=== PATIENT | female | born 1940 | race Caucasian/White ===

== ENCOUNTER 2021-02-25 13:10 | Inpatient (IN) ==
[2021-02-25] MEDS ORDERED: *HR* Dextrose 50 % in Water (Syg) 50 ML SYRINGE IVP PRN (15:55)
[2021-02-25] MEDS ORDERED: Dextrose Gel 15 GM/37.5 ML TUBE PO PRN ×2 (15:55)
[2021-02-25] MEDS ORDERED: D5% in Water 1,000 ML IVC PRN (15:55)
[2021-02-25] MEDS ORDERED: (Diclofenac Sodium [Voltaren] 100 GM Gel..Gram.) TP PRN (16:03)
[2021-02-25] MEDS: Insulin LISPRO 300 UNITS/3 ML VIAL SUBQ SCH ×2 (16:59→21:54)
[2021-02-25] MEDS: *HR* HYDROcodone/Acet 10/325 mg TABLET PO PRN (17:20)
[2021-02-25] MEDS: Metoprolol 100 MG TABLET PO SCH (21:53)
[2021-02-25] MEDS: Insulin DETEMIR 100 UNIT/ML X5UNITS SUBQ SCH (21:53)
[2021-02-25] MEDS: Gabapentin 300 MG CAPSULE PO SCH (21:53)
[2021-02-25] MEDS: Nystatin POWDER 30 GM BOTTLE TP SCH (21:54)
[2021-02-26] MEDS: *HR* HYDROcodone/Acet 10/325 mg TABLET PO PRN ×4 (01:03→22:39)
[2021-02-26 08:34] LABS: Basophils # 0.1 K/mcL (0.0-0.2); Basophils % 0.9 %; Eosinophils # 0.4 K/mcL (0.0-0.6); Eosinophils % 3.5 %; Hematocrit 48.1 % (35.3-44.9); Immature Granulocytes % 1.2 % (0-4); Lymphocytes # 1.5 K/mcL (0.6-4.6); Lymphocytes % 14.4 %; Mean Corpuscular HGB Conc 33.3 g/dL (31.6-35.5); Mean Corpuscular Hemoglobin 32.6 pg (28.0-33.3); Mean Platelet Volume 10.3 fL (9.4-12.4); Monocytes % 9.9 %; Neutrophils # 7.3 K/mcL (1.6-8.9); Platelet Count 187 K/mcL (140-400); Red Blood Count 4.91 M/mcL (3.82-4.97); Red Cell Distribution Width 14.7 % (11.5-14.5); Segmented Neutrophils % 70.1 %; White Blood Count 10.4 K/mcL (4.3-11.1)
[2021-02-26] MEDS: Insulin LISPRO 300 UNITS/3 ML VIAL SUBQ SCH ×4 (08:54→21:29)
[2021-02-26] MEDS: Gabapentin 300 MG CAPSULE PO SCH ×3 (08:57→21:28)
[2021-02-26] MEDS: calcitrioL 0.25 MCG CAPSULE PO SCH (08:57)
[2021-02-26] MEDS: Cholecalciferol (D-3) 1,000 UNIT (25MCG) TABLET PO SCH (08:57)
[2021-02-26] MEDS: Aspirin 81 MG TAB.CHEW PO SCH (08:57)
[2021-02-26] MEDS: Metoprolol 100 MG TABLET PO SCH ×2 (08:57→21:28)
[2021-02-26] MEDS: Isosorbide MONOnitrate (24 HR) 60 MG TAB.ER.24H PO SCH (08:57)
[2021-02-26] MEDS: Furosemide 20 MG TABLET PO SCH (08:58)
[2021-02-26] MEDS: Nystatin POWDER 30 GM BOTTLE TP SCH ×3 (08:58→21:50)
[2021-02-26] MEDS: polyethylene glycoL 3350 17 GM POWD.PACK PO SCH (08:59)
[2021-02-26] MEDS ORDERED: Nitroglycerin 0.1 MG PATCH.TD24 TD SCH (09:00)
[2021-02-26 09:11] LABS: Calcium 9.8 mg/dL (8.6-10.3); Potassium 4.1 mEq/L (3.5-5.1)
[2021-02-26] MEDS: Insulin DETEMIR 100 UNIT/ML X5UNITS SUBQ SCH (09:17)
[2021-02-26] MEDS: (Empagliflozin [Jardiance] 25 MG Tablet) PO SCH (11:09)
[2021-02-26] MEDS: NALOXEGOL OXALATE 25 MG PO SCH (11:09)
[2021-02-26] MEDS ORDERED: Ipratropium/Albuterol Neb 3 ML IH PRN (13:19)
[2021-02-26] MEDS ORDERED: Insulin DETEMIR 100 UNIT/ML X5UNITS SUBQ SCH (21:00)
[2021-02-27] MEDS: *HR* HYDROcodone/Acet 10/325 mg TABLET PO PRN (05:07)
[2021-02-27] MEDS: *HR* LORazepam 1 MG TABLET PO PRN (05:07)
[2021-02-27] MEDS: *HR* Enoxaparin 40 MG/0.4 ML SYRINGE SQ SCH (07:03)
[2021-02-27] MEDS: Isosorbide MONOnitrate (24 HR) 60 MG TAB.ER.24H PO SCH (10:01)
[2021-02-27] MEDS: Furosemide 20 MG TABLET PO SCH (10:01)
[2021-02-27] MEDS: Cholecalciferol (D-3) 1,000 UNIT (25MCG) TABLET PO SCH (10:01)
[2021-02-27] MEDS: Aspirin 81 MG TAB.CHEW PO SCH (10:01)
[2021-02-27] MEDS: polyethylene glycoL 3350 17 GM POWD.PACK PO SCH (10:01)
[2021-02-27] MEDS: Metoprolol 100 MG TABLET PO SCH ×2 (10:01→20:55)
[2021-02-27] MEDS: calcitrioL 0.25 MCG CAPSULE PO SCH (10:01)
[2021-02-27] MEDS: Gabapentin 300 MG CAPSULE PO SCH ×3 (10:01→20:56)
[2021-02-27] MEDS: Insulin DETEMIR 100 UNIT/ML X5UNITS SUBQ SCH ×2 (10:01→21:07)
[2021-02-27] MEDS: Insulin LISPRO 300 UNITS/3 ML VIAL SUBQ SCH ×7 (10:03→21:08)
[2021-02-27] MEDS: Nystatin POWDER 30 GM BOTTLE TP SCH ×3 (10:04→21:16)
[2021-02-27] MEDS: (Empagliflozin [Jardiance] 25 MG Tablet) PO SCH (10:05)
[2021-02-27] MEDS: NALOXEGOL OXALATE 25 MG PO SCH (10:05)
[2021-02-28] MEDS: *HR* HYDROcodone/Acet 10/325 mg TABLET PO PRN ×3 (00:07→18:35)
[2021-02-28] MEDS: *HR* Enoxaparin 40 MG/0.4 ML SYRINGE SQ SCH (05:18)
[2021-02-28] MEDS: Furosemide 20 MG TABLET PO SCH (08:33)
[2021-02-28] MEDS: calcitrioL 0.25 MCG CAPSULE PO SCH (08:33)
[2021-02-28] MEDS: Isosorbide MONOnitrate (24 HR) 60 MG TAB.ER.24H PO SCH (08:33)
[2021-02-28] MEDS: Cholecalciferol (D-3) 1,000 UNIT (25MCG) TABLET PO SCH (08:33)
[2021-02-28] MEDS: Gabapentin 300 MG CAPSULE PO SCH ×3 (08:33→20:24)
[2021-02-28] MEDS: Metoprolol 100 MG TABLET PO SCH ×2 (08:33→20:24)
[2021-02-28] MEDS: polyethylene glycoL 3350 17 GM POWD.PACK PO SCH (08:33)
[2021-02-28] MEDS: Aspirin 81 MG TAB.CHEW PO SCH (08:33)
[2021-02-28] MEDS: Insulin LISPRO 300 UNITS/3 ML VIAL SUBQ SCH ×8 (08:34→20:32)
[2021-02-28] MEDS: Insulin DETEMIR 100 UNIT/ML X5UNITS SUBQ SCH ×2 (08:34→20:32)
[2021-02-28] MEDS: NALOXEGOL OXALATE 25 MG PO SCH (08:35)
[2021-02-28] MEDS: (Empagliflozin [Jardiance] 25 MG Tablet) PO SCH (08:35)
[2021-02-28] MEDS: Nystatin POWDER 30 GM BOTTLE TP SCH ×3 (08:44→20:33)
[2021-03-01] MEDS: *HR* LORazepam 1 MG TABLET PO PRN ×2 (00:32→07:56)
[2021-03-01] MEDS: *HR* HYDROcodone/Acet 10/325 mg TABLET PO PRN ×3 (00:32→16:05)
[2021-03-01] MEDS: *HR* Enoxaparin 40 MG/0.4 ML SYRINGE SQ SCH (06:25)
[2021-03-01] MEDS: Insulin LISPRO 300 UNITS/3 ML VIAL SUBQ SCH ×7 (07:53→20:28)
[2021-03-01] MEDS: Metoprolol 100 MG TABLET PO SCH ×2 (07:56→20:27)
[2021-03-01] MEDS: calcitrioL 0.25 MCG CAPSULE PO SCH (07:56)
[2021-03-01] MEDS: Aspirin 81 MG TAB.CHEW PO SCH (07:56)
[2021-03-01] MEDS: polyethylene glycoL 3350 17 GM POWD.PACK PO SCH (07:56)
[2021-03-01] MEDS: Isosorbide MONOnitrate (24 HR) 60 MG TAB.ER.24H PO SCH (07:56)
[2021-03-01] MEDS: Gabapentin 300 MG CAPSULE PO SCH ×3 (07:56→20:27)
[2021-03-01] MEDS: Furosemide 20 MG TABLET PO SCH (07:56)
[2021-03-01] MEDS: Cholecalciferol (D-3) 1,000 UNIT (25MCG) TABLET PO SCH (07:56)
[2021-03-01] MEDS: (Empagliflozin [Jardiance] 25 MG Tablet) PO SCH (07:57)
[2021-03-01] MEDS: NALOXEGOL OXALATE 25 MG PO SCH (07:57)
[2021-03-01] MEDS: Nystatin POWDER 30 GM BOTTLE TP SCH ×3 (07:57→20:34)
[2021-03-01] MEDS: Insulin DETEMIR 100 UNIT/ML X5UNITS SUBQ SCH ×2 (08:51→20:28)
[2021-03-01 09:07] LABS: Basophils # 0.1 K/mcL (0.0-0.2); Basophils % 0.7 %; Eosinophils # 0.2 K/mcL (0.0-0.6); Eosinophils % 2.5 %; Hematocrit 50.8 % (35.3-44.9); Immature Granulocytes % 1.1 % (0-4); Lymphocytes # 1.4 K/mcL (0.6-4.6); Lymphocytes % 14.8 %; Mean Corpuscular HGB Conc 33.5 g/dL (31.6-35.5); Mean Corpuscular Hemoglobin 33.2 pg (28.0-33.3); Mean Corpuscular Volume 99.2 fL (83.0-100.0); Mean Platelet Volume 10.5 fL (9.4-12.4); Monocytes # 0.7 K/mcL (0.0-1.3); Monocytes % 7.6 %; Neutrophils # 6.9 K/mcL (1.6-8.9); Platelet Count 155 K/mcL (140-400); Red Blood Count 5.12 M/mcL (3.82-4.97); Red Cell Distribution Width 14.7 % (11.5-14.5); Segmented Neutrophils % 73.3 %; White Blood Count 9.5 K/mcL (4.3-11.1)
[2021-03-01 09:22] LABS: Calcium 9.8 mg/dL (8.6-10.3); Potassium 4.2 mEq/L (3.5-5.1)
[2021-03-02] MEDS: *HR* Enoxaparin 40 MG/0.4 ML SYRINGE SQ SCH (05:52)
[2021-03-02] MEDS: polyethylene glycoL 3350 17 GM POWD.PACK PO SCH (09:19)
[2021-03-02] MEDS: Metoprolol 100 MG TABLET PO SCH ×2 (09:20→20:35)
[2021-03-02] MEDS: Gabapentin 300 MG CAPSULE PO SCH ×3 (09:20→20:35)
[2021-03-02] MEDS: Isosorbide MONOnitrate (24 HR) 60 MG TAB.ER.24H PO SCH (09:20)
[2021-03-02] MEDS: Cholecalciferol (D-3) 1,000 UNIT (25MCG) TABLET PO SCH (09:20)
[2021-03-02] MEDS: Aspirin 81 MG TAB.CHEW PO SCH (09:20)
[2021-03-02] MEDS: calcitrioL 0.25 MCG CAPSULE PO SCH (09:20)
[2021-03-02] MEDS: *HR* HYDROcodone/Acet 10/325 mg TABLET PO PRN ×2 (09:20→16:03)
[2021-03-02] MEDS: Furosemide 20 MG TABLET PO SCH (09:20)
[2021-03-02] MEDS: Insulin DETEMIR 100 UNIT/ML X5UNITS SUBQ SCH ×2 (09:23→20:36)
[2021-03-02] MEDS: Insulin LISPRO 300 UNITS/3 ML VIAL SUBQ SCH ×7 (09:24→20:36)
[2021-03-02] MEDS: Nystatin POWDER 30 GM BOTTLE TP SCH (09:29)
[2021-03-02] MEDS: (Empagliflozin [Jardiance] 25 MG Tablet) PO SCH (09:29)
[2021-03-02] MEDS: NALOXEGOL OXALATE 25 MG PO SCH (09:30)
[2021-03-02] MEDS: *HR* LORazepam 1 MG TABLET PO PRN (20:35)
[2021-03-03] MEDS: *HR* OxyCODONE/APAP 5/325 TABLET PO PRN ×3 (00:25→18:57)
[2021-03-03] MEDS: Nystatin POWDER 30 GM BOTTLE TP SCH ×5 (00:26→20:27)
[2021-03-03] MEDS: *HR* Enoxaparin 40 MG/0.4 ML SYRINGE SQ SCH (05:28)
[2021-03-03] MEDS: Gabapentin 300 MG CAPSULE PO SCH ×3 (08:28→20:26)
[2021-03-03] MEDS: Aspirin 81 MG TAB.CHEW PO SCH (08:28)
[2021-03-03] MEDS: calcitrioL 0.25 MCG CAPSULE PO SCH (08:29)
[2021-03-03] MEDS: Furosemide 20 MG TABLET PO SCH (08:29)
[2021-03-03] MEDS: Cholecalciferol (D-3) 1,000 UNIT (25MCG) TABLET PO SCH (08:29)
[2021-03-03] MEDS: Isosorbide MONOnitrate (24 HR) 60 MG TAB.ER.24H PO SCH (08:29)
[2021-03-03] MEDS: Metoprolol 100 MG TABLET PO SCH ×2 (08:29→20:26)
[2021-03-03] MEDS: polyethylene glycoL 3350 17 GM POWD.PACK PO SCH (08:29)
[2021-03-03] MEDS: (Empagliflozin [Jardiance] 25 MG Tablet) PO SCH (08:32)
[2021-03-03] MEDS: Insulin LISPRO 300 UNITS/3 ML VIAL SUBQ SCH ×7 (08:35→20:27)
[2021-03-03] MEDS: Insulin DETEMIR 100 UNIT/ML X5UNITS SUBQ SCH ×2 (08:38→20:27)
[2021-03-03] MEDS: NALOXEGOL OXALATE 25 MG PO SCH (08:42)
[2021-03-04] MEDS: *HR* OxyCODONE/APAP 5/325 TABLET PO PRN ×4 (02:32→21:34)
[2021-03-04] MEDS: *HR* Enoxaparin 40 MG/0.4 ML SYRINGE SQ SCH (05:45)
[2021-03-04] MEDS: Isosorbide MONOnitrate (24 HR) 60 MG TAB.ER.24H PO SCH (08:52)
[2021-03-04] MEDS: Gabapentin 300 MG CAPSULE PO SCH ×3 (08:52→21:11)
[2021-03-04] MEDS: calcitrioL 0.25 MCG CAPSULE PO SCH (08:52)
[2021-03-04] MEDS: Furosemide 20 MG TABLET PO SCH (08:52)
[2021-03-04] MEDS: Cholecalciferol (D-3) 1,000 UNIT (25MCG) TABLET PO SCH (08:52)
[2021-03-04] MEDS: Aspirin 81 MG TAB.CHEW PO SCH (08:52)
[2021-03-04] MEDS: polyethylene glycoL 3350 17 GM POWD.PACK PO SCH (08:53)
[2021-03-04] MEDS: Nystatin POWDER 30 GM BOTTLE TP SCH ×3 (08:53→21:35)
[2021-03-04] MEDS: Metoprolol 100 MG TABLET PO SCH ×2 (08:53→21:11)
[2021-03-04] MEDS: NALOXEGOL OXALATE 25 MG PO SCH (08:53)
[2021-03-04] MEDS: (Empagliflozin [Jardiance] 25 MG Tablet) PO SCH (08:53)
[2021-03-04] MEDS: Insulin LISPRO 300 UNITS/3 ML VIAL SUBQ SCH ×7 (08:54→21:07)
[2021-03-04] MEDS: Insulin DETEMIR 100 UNIT/ML X5UNITS SUBQ SCH ×2 (08:54→21:11)
[2021-03-04] MEDS: *HR* LORazepam 1 MG TABLET PO PRN (10:55)
[2021-03-05] MEDS: *HR* Enoxaparin 40 MG/0.4 ML SYRINGE SQ SCH (05:52)
[2021-03-05] MEDS: Isosorbide MONOnitrate (24 HR) 60 MG TAB.ER.24H PO SCH (07:42)
[2021-03-05] MEDS: calcitrioL 0.25 MCG CAPSULE PO SCH (07:43)
[2021-03-05] MEDS: Furosemide 20 MG TABLET PO SCH (07:43)
[2021-03-05] MEDS: Metoprolol 100 MG TABLET PO SCH ×2 (07:43→21:34)
[2021-03-05] MEDS: Cholecalciferol (D-3) 1,000 UNIT (25MCG) TABLET PO SCH (07:43)
[2021-03-05] MEDS: Aspirin 81 MG TAB.CHEW PO SCH (07:43)
[2021-03-05] MEDS: Gabapentin 300 MG CAPSULE PO SCH ×3 (07:43→21:34)
[2021-03-05] MEDS: Insulin LISPRO 300 UNITS/3 ML VIAL SUBQ SCH ×7 (07:44→21:29)
[2021-03-05] MEDS: polyethylene glycoL 3350 17 GM POWD.PACK PO SCH (07:44)
[2021-03-05] MEDS: (Empagliflozin [Jardiance] 25 MG Tablet) PO SCH (07:44)
[2021-03-05 08:40] LABS: Basophils # 0.1 K/mcL (0.0-0.2); Basophils % 1.2 %; Eosinophils # 0.3 K/mcL (0.0-0.6); Eosinophils % 3.2 %; Hemoglobin 16.7 g/dL (11.5-15.4); Immature Granulocytes % 1.6 % (0-4); Lymphocytes # 1.4 K/mcL (0.6-4.6); Lymphocytes % 16.5 %; Mean Corpuscular HGB Conc 32.7 g/dL (31.6-35.5); Mean Corpuscular Hemoglobin 33.1 pg (28.0-33.3); Mean Corpuscular Volume 101.2 fL (83.0-100.0); Mean Platelet Volume 11.1 fL (9.4-12.4); Monocytes % 11.8 %; Neutrophils # 5.6 K/mcL (1.6-8.9); Platelet Count 179 K/mcL (140-400); Red Blood Count 5.04 M/mcL (3.82-4.97); Red Cell Distribution Width 14.5 % (11.5-14.5); Segmented Neutrophils % 65.7 %; White Blood Count 8.6 K/mcL (4.3-11.1)
[2021-03-05] MEDS: Insulin DETEMIR 100 UNIT/ML X5UNITS SUBQ SCH ×2 (08:45→21:35)
[2021-03-05] MEDS: NALOXEGOL OXALATE 25 MG PO SCH (08:45)
[2021-03-05] MEDS: Nystatin POWDER 30 GM BOTTLE TP SCH ×3 (08:46→21:37)
[2021-03-05 09:10] LABS: Calcium 10.1 mg/dL (8.6-10.3); Potassium 3.8 mEq/L (3.5-5.1)
[2021-03-05] MEDS: *HR* OxyCODONE/APAP 5/325 TABLET PO PRN ×2 (11:00→18:17)
[2021-03-06] MEDS: *HR* Enoxaparin 40 MG/0.4 ML SYRINGE SQ SCH (05:28)
[2021-03-06] MEDS: *HR* OxyCODONE/APAP 5/325 TABLET PO PRN ×2 (05:29→17:03)
[2021-03-06] MEDS: Gabapentin 300 MG CAPSULE PO SCH ×3 (08:52→20:11)
[2021-03-06] MEDS: Cholecalciferol (D-3) 1,000 UNIT (25MCG) TABLET PO SCH (08:52)
[2021-03-06] MEDS: Aspirin 81 MG TAB.CHEW PO SCH (08:52)
[2021-03-06] MEDS: Metoprolol 100 MG TABLET PO SCH ×2 (08:52→20:11)
[2021-03-06] MEDS: calcitrioL 0.25 MCG CAPSULE PO SCH (08:52)
[2021-03-06] MEDS: Furosemide 20 MG TABLET PO SCH (08:52)
[2021-03-06] MEDS: Isosorbide MONOnitrate (24 HR) 60 MG TAB.ER.24H PO SCH (08:52)
[2021-03-06] MEDS: (Empagliflozin [Jardiance] 25 MG Tablet) PO SCH (08:53)
[2021-03-06] MEDS: NALOXEGOL OXALATE 25 MG PO SCH (08:53)
[2021-03-06] MEDS: Insulin LISPRO 300 UNITS/3 ML VIAL SUBQ SCH ×7 (08:54→20:13)
[2021-03-06] MEDS: Nystatin POWDER 30 GM BOTTLE TP SCH ×3 (08:55→20:13)
[2021-03-06] MEDS: polyethylene glycoL 3350 17 GM POWD.PACK PO SCH (08:59)
[2021-03-06] MEDS: Insulin DETEMIR 100 UNIT/ML X5UNITS SUBQ SCH ×2 (09:40→20:36)
[2021-03-07] MEDS: *HR* Enoxaparin 40 MG/0.4 ML SYRINGE SQ SCH (05:24)
[2021-03-07] MEDS: *HR* OxyCODONE/APAP 5/325 TABLET PO PRN ×3 (05:24→20:18)
[2021-03-07] MEDS: Gabapentin 300 MG CAPSULE PO SCH ×3 (08:03→20:19)
[2021-03-07] MEDS: Furosemide 20 MG TABLET PO SCH (08:03)
[2021-03-07] MEDS: Metoprolol 100 MG TABLET PO SCH ×2 (08:03→20:18)
[2021-03-07] MEDS: calcitrioL 0.25 MCG CAPSULE PO SCH (08:03)
[2021-03-07] MEDS: Cholecalciferol (D-3) 1,000 UNIT (25MCG) TABLET PO SCH (08:03)
[2021-03-07] MEDS: NALOXEGOL OXALATE 25 MG PO SCH (08:03)
[2021-03-07] MEDS: Isosorbide MONOnitrate (24 HR) 60 MG TAB.ER.24H PO SCH (08:04)
[2021-03-07] MEDS: Aspirin 81 MG TAB.CHEW PO SCH (08:04)
[2021-03-07] MEDS: Insulin LISPRO 300 UNITS/3 ML VIAL SUBQ SCH ×7 (08:04→20:19)
[2021-03-07] MEDS: Nystatin POWDER 30 GM BOTTLE TP SCH ×3 (08:05→20:20)
[2021-03-07] MEDS: (Empagliflozin [Jardiance] 25 MG Tablet) PO SCH (08:05)
[2021-03-07] MEDS: Insulin DETEMIR 100 UNIT/ML X5UNITS SUBQ SCH ×2 (09:53→20:19)
[2021-03-07] MEDS: polyethylene glycoL 3350 17 GM POWD.PACK PO SCH (09:53)
[2021-03-07] MEDS: *HR* LORazepam 1 MG TABLET PO PRN (12:11)
[2021-03-08] MEDS: *HR* OxyCODONE/APAP 5/325 TABLET PO PRN ×2 (02:16→08:36)
[2021-03-08] MEDS: *HR* Enoxaparin 40 MG/0.4 ML SYRINGE SQ SCH (05:59)
[2021-03-08] MEDS: Cholecalciferol (D-3) 1,000 UNIT (25MCG) TABLET PO SCH (08:37)
[2021-03-08] MEDS: calcitrioL 0.25 MCG CAPSULE PO SCH (08:37)
[2021-03-08] MEDS: polyethylene glycoL 3350 17 GM POWD.PACK PO SCH (08:37)
[2021-03-08] MEDS: Aspirin 81 MG TAB.CHEW PO SCH (08:37)
[2021-03-08] MEDS: Nystatin POWDER 30 GM BOTTLE TP SCH ×3 (08:37→23:16)
[2021-03-08] MEDS: Gabapentin 300 MG CAPSULE PO SCH ×3 (08:37→21:17)
[2021-03-08] MEDS: Metoprolol 100 MG TABLET PO SCH ×2 (08:37→21:17)
[2021-03-08] MEDS: Insulin DETEMIR 100 UNIT/ML X5UNITS SUBQ SCH ×2 (08:37→21:28)
[2021-03-08] MEDS: *HR* LORazepam 1 MG TABLET PO PRN (08:37)
[2021-03-08] MEDS: Furosemide 20 MG TABLET PO SCH (08:37)
[2021-03-08] MEDS: Isosorbide MONOnitrate (24 HR) 60 MG TAB.ER.24H PO SCH (08:37)
[2021-03-08] MEDS: Insulin LISPRO 300 UNITS/3 ML VIAL SUBQ SCH ×7 (08:38→21:25)
[2021-03-08] MEDS: NALOXEGOL OXALATE 25 MG PO SCH (08:38)
[2021-03-08] MEDS: (Empagliflozin [Jardiance] 25 MG Tablet) PO SCH (08:38)
[2021-03-08] MEDS ORDERED: *HR* OxyCODONE/APAP 10/325 TABLET PO PRN (09:06)
[2021-03-08] MEDS ORDERED: Acetaminophen 325 MG TABLET PO PRN (09:35)
[2021-03-08] MEDS: *HR* HYDROcodone/Acet 10/325 mg TABLET PO PRN ×2 (14:29→21:16)
[2021-03-09] MEDS: *HR* HYDROcodone/Acet 10/325 mg TABLET PO PRN ×2 (04:03→22:16)
[2021-03-09] MEDS: *HR* Enoxaparin 40 MG/0.4 ML SYRINGE SQ SCH (06:02)
[2021-03-09] MEDS: Insulin DETEMIR 100 UNIT/ML X5UNITS SUBQ SCH ×2 (09:20→21:07)
[2021-03-09] MEDS: NALOXEGOL OXALATE 25 MG PO SCH (09:20)
[2021-03-09] MEDS: Insulin LISPRO 300 UNITS/3 ML VIAL SUBQ SCH ×7 (09:20→22:37)
[2021-03-09] MEDS: Cholecalciferol (D-3) 1,000 UNIT (25MCG) TABLET PO SCH (09:22)
[2021-03-09] MEDS: calcitrioL 0.25 MCG CAPSULE PO SCH (09:22)
[2021-03-09] MEDS: Aspirin 81 MG TAB.CHEW PO SCH ×2 (09:22→21:22)
[2021-03-09] MEDS: Gabapentin 300 MG CAPSULE PO SCH ×3 (09:22→21:07)
[2021-03-09] MEDS: Metoprolol 100 MG TABLET PO SCH ×2 (09:22→21:07)
[2021-03-09] MEDS: Isosorbide MONOnitrate (24 HR) 60 MG TAB.ER.24H PO SCH (09:22)
[2021-03-09] MEDS: Furosemide 20 MG TABLET PO SCH (09:22)
[2021-03-09] MEDS: polyethylene glycoL 3350 17 GM POWD.PACK PO SCH (09:23)
[2021-03-09] MEDS: (Empagliflozin [Jardiance] 25 MG Tablet) PO SCH (09:23)
[2021-03-09] MEDS: Nystatin POWDER 30 GM BOTTLE TP SCH ×3 (09:23→22:37)
[2021-03-09] MEDS: *HR* LORazepam 1 MG TABLET PO PRN (21:07)
[2021-03-10] MEDS ORDERED: GI Cocktail 40 ML EACH PO ONE (00:15)
[2021-03-10 00:43] LABS: Calcium 10.5 mg/dL (8.6-10.3); Potassium 4.2 mEq/L (3.5-5.1)
[2021-03-10] MEDS: *HR* HYDROcodone/Acet 10/325 mg TABLET PO PRN ×3 (04:55→22:10)
[2021-03-10] MEDS: *HR* Enoxaparin 40 MG/0.4 ML SYRINGE SQ SCH (04:56)
[2021-03-10] MEDS: polyethylene glycoL 3350 17 GM POWD.PACK PO SCH (08:34)
[2021-03-10] MEDS: Isosorbide MONOnitrate (24 HR) 60 MG TAB.ER.24H PO SCH (08:34)
[2021-03-10] MEDS: Cholecalciferol (D-3) 1,000 UNIT (25MCG) TABLET PO SCH (08:34)
[2021-03-10] MEDS: Insulin LISPRO 300 UNITS/3 ML VIAL SUBQ SCH ×7 (08:34→22:14)
[2021-03-10] MEDS: Metoprolol 100 MG TABLET PO SCH ×2 (08:34→22:10)
[2021-03-10] MEDS: calcitrioL 0.25 MCG CAPSULE PO SCH (08:34)
[2021-03-10] MEDS: Furosemide 20 MG TABLET PO SCH (08:34)
[2021-03-10] MEDS: Nystatin POWDER 30 GM BOTTLE TP SCH ×3 (08:35→22:11)
[2021-03-10] MEDS: (Empagliflozin [Jardiance] 25 MG Tablet) PO SCH (08:35)
[2021-03-10] MEDS: Gabapentin 300 MG CAPSULE PO SCH ×2 (08:38→11:17)
[2021-03-10] MEDS: NALOXEGOL OXALATE 25 MG PO SCH (08:41)
[2021-03-10] MEDS: Insulin DETEMIR 100 UNIT/ML X5UNITS SUBQ SCH ×2 (08:42→22:11)
[2021-03-11] MEDS: *HR* HYDROcodone/Acet 10/325 mg TABLET PO PRN ×3 (04:18→17:31)
[2021-03-11] MEDS: *HR* Enoxaparin 40 MG/0.4 ML SYRINGE SQ SCH (05:31)
[2021-03-11] MEDS: NALOXEGOL OXALATE 25 MG PO SCH (08:51)
[2021-03-11] MEDS: Aspirin 81 MG TAB.CHEW PO SCH (08:52)
[2021-03-11] MEDS: Furosemide 20 MG TABLET PO SCH (08:53)
[2021-03-11] MEDS: Metoprolol 100 MG TABLET PO SCH ×2 (08:53→21:52)
[2021-03-11] MEDS: calcitrioL 0.25 MCG CAPSULE PO SCH (08:53)
[2021-03-11] MEDS: Cholecalciferol (D-3) 1,000 UNIT (25MCG) TABLET PO SCH (08:53)
[2021-03-11] MEDS: Isosorbide MONOnitrate (24 HR) 60 MG TAB.ER.24H PO SCH (08:53)
[2021-03-11] MEDS: Insulin DETEMIR 100 UNIT/ML X5UNITS SUBQ SCH ×2 (08:53→21:53)
[2021-03-11] MEDS: polyethylene glycoL 3350 17 GM POWD.PACK PO SCH (08:54)
[2021-03-11] MEDS: Insulin LISPRO 300 UNITS/3 ML VIAL SUBQ SCH ×7 (08:54→21:53)
[2021-03-11] MEDS: Nystatin POWDER 30 GM BOTTLE TP SCH ×3 (08:55→21:54)
[2021-03-11] MEDS: (Empagliflozin [Jardiance] 25 MG Tablet) PO SCH (08:55)
[2021-03-11] MEDS ORDERED: *HR* LORazepam 1 MG TABLET PO PRN (16:24)
[2021-03-12] MEDS: *HR* HYDROcodone/Acet 10/325 mg TABLET PO PRN ×3 (01:24→14:49)
[2021-03-12] MEDS: *HR* Enoxaparin 40 MG/0.4 ML SYRINGE SQ SCH (05:48)
[2021-03-12 07:04] VITALS: BP 143/75; PULSE 74; RESP 20; TEMP 97.3; O2SAT 97
[2021-03-12] MEDS: Furosemide 20 MG TABLET PO SCH (08:19)
[2021-03-12] MEDS: Metoprolol 100 MG TABLET PO SCH (08:19)
[2021-03-12] MEDS: calcitrioL 0.25 MCG CAPSULE PO SCH (08:19)
[2021-03-12] MEDS: Isosorbide MONOnitrate (24 HR) 60 MG TAB.ER.24H PO SCH (08:19)
[2021-03-12] MEDS: Aspirin 81 MG TAB.CHEW PO SCH (08:19)
[2021-03-12] MEDS: Cholecalciferol (D-3) 1,000 UNIT (25MCG) TABLET PO SCH (08:19)
[2021-03-12] MEDS: NALOXEGOL OXALATE 25 MG PO SCH (08:19)
[2021-03-12] MEDS: Insulin DETEMIR 100 UNIT/ML X5UNITS SUBQ SCH (08:20)
[2021-03-12] MEDS: Insulin LISPRO 300 UNITS/3 ML VIAL SUBQ SCH ×4 (08:20→11:34)
[2021-03-12] MEDS: Nystatin POWDER 30 GM BOTTLE TP SCH (08:21)
[2021-03-12] MEDS: (Empagliflozin [Jardiance] 25 MG Tablet) PO SCH (08:21)
[2021-03-12] MEDS: polyethylene glycoL 3350 17 GM POWD.PACK PO SCH (08:21)
== END 2021-03-12 15:00 | DRG 560 ==
LOC: INPPIK 14:14
PROVIDERS: ADMIT Family Medicine; ATTEND Family Medicine